=== PATIENT | female | born 1940 | race Caucasian/White ===

== ENCOUNTER 2017-12-09 11:19 | Inpatient (IN) | payer MEDICARE ==
[~2017-12-09] VITALS: Ht 162.6 cm; Wt 103.2 kg
[2017-12-09 11:45] LABS: BASOPHILS % (AUTO) 1.2 % (0.0-5.0); EOSINOPHILS % (AUTO) 2.4 % (0.0-8.0); HEMATOCRIT 38.9 % (36-48); LYMPHOCYTES % (AUTO) 23.7 % (21.0-51.0); MEAN CORPUSCULAR HEMOGLOBIN 30.8 pg (27.0-33.0); MEAN CORPUSCULAR HGB CONC 33.6 g/dL (32.0-36.0); MEAN CORPUSCULAR VOLUME 91.5 fL (79-99); MONOCYTES % (AUTO) 13.1 % (3.0-13.0); NEUTROPHILS % (AUTO) 59.6 % (40.0-77.0); PLATELET COUNT (AUTO) 201 K/uL (130-400); RED BLOOD CELL COUNT(AUTO) 4.25 MIL/uL (4.00-5.50); RED CELL DISTRIBUTION WIDTH 13.5 % (11.0-15.5); WHITE BLOOD COUNT (AUTO) 12.6 K/uL (4.8-10.8)
[2017-12-09 11:56] LABS: CARBON DIOXIDE 31 mmol/L (21-32); CHLORIDE 101 mmol/L (101-111); CREATININE 1.5 mg/dL (0.5-1.5); GLOMERULAR FILTR. RATE CALC 36 mL/min (>60); GLUCOSE,RANDOM 86 mg/dL (70-105); POTASSIUM 3.6 mmol/L (3.5-5.1); SODIUM SERUM 140 mmol/L (136-145); UREA NITROGEN, BLOOD 22 mg/dL (7-18)
[2017-12-09 12:12] LABS: ALANINE AMINOTRANSFERASE 13 U/L (12-78); ALBUMIN 3.3 g/dL (3.5-5.0); ASPARTATE AMINOTRANSFERASE 17 U/L (10-37); BILIRUBIN,TOTAL 1.2 mg/dL (0.2-1.0); CREATINE KINASE MB < 0.5 ng/mL (0.5-3.6); CREATINE KINASE, TOTAL 39 U/L (21-232)
[2017-12-09] MEDS ORDERED: ONDANSETRON HCL MDV 20ML 2 MG/ML VIAL ONE (12:30)
[2017-12-09] MEDS ORDERED: MORPHINE SULFATE 4 MG/1ML SYG ONE (12:30)
[2017-12-09 12:50] LABS: APPEARANCE,URINE SL CLOUDY (CLEAR); BILIRUBIN,URINE MODERATE (NEGATIVE); GLUCOSE, URINE (UA) NEGATIVE (NEGATIVE); KETONES,URINE 5 mg/dL (NEGATIVE); LEUKOCYTE ESTERASE ,URINE TRACE (NEGATIVE); NITRATE,URINE NEGATIVE (NEGATIVE); OCCULT BLOOD,URINE TRACE-INTACT (NEGATIVE); PROTEIN,URINE TRACE (NEGATIVE)
[2017-12-09 12:52] LABS: COLOR,URINE AMBER (YELLOW)
[2017-12-09 13:15] LABS: BACTERIA,URINE Rare /HPF (None Seen); RBC,URINE 0-1 /HPF (0-1); WBC,URINE 0-1 /HPF (0-1)
[2017-12-09] MEDS ORDERED: SODIUM CHLORIDE 0.9% 1000ML 1,000 ML IV ONE (13:23)
[2017-12-09] MEDS ORDERED: ASPIRIN 325 MG TABLET ONE (13:23)
[2017-12-09] MEDS ORDERED: SODIUM CHLORIDE 0.9% 1000ML 1,000 ML IV SCH (14:39)
[2017-12-09] MEDS ORDERED: MORPHINE SULFATE 2 MG/ML 1ML SYG IV PRN (14:45)
[2017-12-09] MEDS ORDERED: ACETAMINOPHEN-CODEINE 300/30MG TAB PO PRN ×3 (14:45→16:00)
[2017-12-09] MEDS ORDERED: ACETAMINOPHEN 325 MG TAB PO PRN ×2 (14:45)
[2017-12-09] MEDS ORDERED: MORPHINE SULFATE 4 MG/1ML SYG IV PRN (14:45)
[2017-12-09] MEDS ORDERED: MAG HYDROX/AL HYDROX/SIMETH ES 30 ML SUSP UDCUP PO PRN (14:45)
[2017-12-09] MEDS ORDERED: NITROGLYCERIN 0.4 MG SL TAB SL PRN (14:45)
[2017-12-09] MEDS ORDERED: GUAIFENESIN-DM 200/20 MG 10 ML PO PRN (14:45)
[2017-12-09] MEDS ORDERED: HYDRALAZINE HCL 20 MG/ML VIAL IV PRN (14:45)
[2017-12-09] MEDS ORDERED: LACTULOSE 20 GM/30 ML UDCUP PO PRN (14:45)
[2017-12-09] MEDS ORDERED: ONDANSETRON HCL MDV 20ML 2 MG/ML VIAL IV PRN (14:45)
[2017-12-09 16:00] VITALS: BP 114/70
[2017-12-09] MEDS ORDERED: OMEP20TA2 PO (18:36)
[2017-12-09] MEDS ORDERED: BRIN10DR OU (18:36)
[2017-12-09] MEDS ORDERED: FURO20TA4 PO (18:36)
[2017-12-09] MEDS ORDERED: MAGN250T10 PO (18:36)
[2017-12-09] MEDS ORDERED: PRAV20TA4 PO (18:36)
[2017-12-09] MEDS ORDERED: CHOL500045 PO (18:36)
[2017-12-09] MEDS ORDERED: LISI-613 PO (18:36)
[2017-12-09] MEDS ORDERED: VITA400T7 PO (18:36)
[2017-12-09] MEDS ORDERED: METH4TAB PO (18:36)
[2017-12-09] MEDS ORDERED: LATA2.5D2 OP (18:36)
[2017-12-09] MEDS ORDERED: CALC0.253 PO (18:36)
[2017-12-09] MEDS ORDERED: TIMO.5OS OU (18:36)
[2017-12-09 19:27] VITALS: BP 108/70
[2017-12-09] MEDS: FAMOTIDINE/PF 20 MG/2 ML VIAL IV SCH (21:00)
[2017-12-09 23:48] VITALS: BP 93/63
[2017-12-10 03:49] VITALS: BP 147/97
[2017-12-10 04:41] LABS: HEMATOCRIT 34.6 % (36-48); MEAN CORPUSCULAR HEMOGLOBIN 32.1 pg (27.0-33.0); MEAN CORPUSCULAR VOLUME 91.9 fL (79-99); PLATELET COUNT (AUTO) 180 K/uL (130-400); RED BLOOD CELL COUNT(AUTO) 3.77 MIL/uL (4.00-5.50); WHITE BLOOD COUNT (AUTO) 9.2 K/uL (4.8-10.8)
[2017-12-10 04:59] LABS: CREATININE 1.3 mg/dL (0.5-1.5); POTASSIUM 3.8 mmol/L (3.5-5.1)
[2017-12-10 08:00] VITALS: BP 106/71
[2017-12-10] MEDS: ENOXAPARIN SODIUM 40 MG/0.4 ML SYRINGE SQ SCH (08:36)
[2017-12-10] MEDS: FAMOTIDINE/PF 20 MG/2 ML VIAL IV SCH (08:36)
[2017-12-10 12:00] VITALS: BP 103/61
[2017-12-10 16:00] VITALS: BP 134/75
[2017-12-10 19:37] VITALS: BP 114/77
[2017-12-10] MEDS: BRINZOLAMIDE 1% 10ML DROPS.SUSP OU SCH (20:42)
[2017-12-10] MEDS ORDERED: ATORVASTATIN CALCIUM 10 MG TABLET PO SCH (21:00)
[2017-12-10 23:13] VITALS: BP 144/85
[2017-12-11 03:50] VITALS: BP 144/88
[2017-12-11 07:00] VITALS: BP 115/68
[2017-12-11] MEDS ORDERED: PHARMACY COMMUNICATION MISC SCH (07:15)
[2017-12-11] MEDS: FAMOTIDINE/PF 20 MG/2 ML VIAL IV SCH (08:53)
[2017-12-11] MEDS: ENOXAPARIN SODIUM 40 MG/0.4 ML SYRINGE SQ SCH (08:53)
[2017-12-11] MEDS: BRINZOLAMIDE 1% 10ML DROPS.SUSP OU SCH (08:58)
[2017-12-11] MEDS ORDERED: FUROSEMIDE 20 MG TABLET PO SCH (09:00)
[2017-12-11] MEDS ORDERED: CHOLECALCIFEROL 5000 UNIT PO SCH (09:00)
[2017-12-11] MEDS ORDERED: VITAMIN E 400 UNIT CAPSULE PO SCH (09:00)
[2017-12-11] MEDS ORDERED: METHYLPREDNISOLONE 4 MG TABLET PO SCH (09:00)
[2017-12-11] MEDS ORDERED: LISINOPRIL 20 MG TABLET PO SCH (09:00)
[2017-12-11] MEDS ORDERED: MAGNESIUM OXIDE 250 MG PO SCH (09:00)
== END 2017-12-11 12:15 | disposition home or self-care (01) | DRG 440 ==
LOC: EDH 11:19 → EDHIP 14:37 → 3CH 15:55
PROVIDERS: ADMIT Internal Medicine; ATTEND Internal Medicine
DX: K85.90 Acute pancreatitis without necrosis or infection, unspecified (principal); M06.9 Rheumatoid arthritis, unspecified; E66.9 Obesity, unspecified; I10 Essential (primary) hypertension; E78.5 Hyperlipidemia, unspecified; Z90.710 Acquired absence of both cervix and uterus; Z88.5 Allergy status to narcotic agent; Z91.012 Allergy to eggs
CPT/HCPCS: 36415; 71045; 74176; 76705; 80048; 80053; 81001; 82550; 82553; 83690; 84478; 84484; 85025; 85027; 93005; J1650; J2270; J3490; J7030; J7509

== ENCOUNTER 2018-11-28 12:53 | Emergency (ER) | payer MEDICARE ==
[~2018-11-28 12:53] MED LIST: BRIN10DR OU; CALC0.253 PO; CHOL500045 PO; FURO20TA4 PO; LATA2.5D2 OP; LISI-613 PO; MAGN250T10 PO; METH4TAB PO; OMEP20TA2 PO; PRAV20TA4 PO; TIMO.5OS OU; VITA400T7 PO
[2018-11-28] MEDS ORDERED: LIDOCAINE HCL 1% 20 ML VIAL ONE (13:20)
[2018-11-28] MEDS ORDERED: TETANUS/DIPHTHERIA TOXOID [ADULT] 0.5 ML VIAL IM ONE (13:20)
[2018-11-28] MEDS ORDERED: LIDOCAINE 2%-EPI 1:200,000 20 ML VIAL IJ ONE (13:27)
[2018-11-28 14:23] LABS: BASOPHILS % (AUTO) 0.6 % (0.0-5.0); EOSINOPHILS % (AUTO) 0.5 % (0.0-8.0); HEMATOCRIT 41.6 % (36-48); LYMPHOCYTES % (AUTO) 16.4 % (21.0-51.0); MEAN CORPUSCULAR HEMOGLOBIN 30.1 pg (27.0-33.0); MEAN CORPUSCULAR HGB CONC 32.7 g/dL (32.0-36.0); MEAN CORPUSCULAR VOLUME 92.2 fL (79-99); MONOCYTES % (AUTO) 7.4 % (3.0-13.0); NEUTROPHILS % (AUTO) 75.1 % (40.0-77.0); PLATELET COUNT (AUTO) 238 K/uL (130-400); RED BLOOD CELL COUNT(AUTO) 4.51 MIL/uL (4.00-5.50); RED CELL DISTRIBUTION WIDTH 14.8 % (11.0-15.5); WHITE BLOOD COUNT (AUTO) 10.5 K/uL (4.8-10.8)
[2018-11-28 14:31] LABS: CREATININE 1.5 mg/dL (0.5-1.5)
[2018-11-28 14:32] LABS: INR 0.96 (0.85-1.15); PARTIAL THROMBOPLASTIN TIME 19.8 SEC (26.3-35.5); PROTHROMBIN TIME 10.1 SEC (9.6-11.6)
[2018-11-28 14:35] LABS: ALBUMIN 3.6 g/dL (3.5-5.0); BILIRUBIN,TOTAL 0.6 mg/dL (0.2-1.0); TOTAL PROTEIN, SERUM 6.8 g/dL (6.0-8.3)
== END 2018-11-28 16:16 | disposition home or self-care (01) ==
LOC: EDH 12:53
DX: S81.012A Laceration without foreign body, left knee, initial encounter (principal); S51.811A Laceration without foreign body of right forearm, initial encounter; S60.512A Abrasion of left hand, initial encounter; I10 Essential (primary) hypertension; M06.9 Rheumatoid arthritis, unspecified; R79.1 Abnormal coagulation profile; Z88.6 Allergy status to analgesic agent; Z90.710 Acquired absence of both cervix and uterus; Z91.012 Allergy to eggs; W01.0XXA Fall on same level from slipping, tripping and stumbling without subsequent striking against object, initial encounter; Y93.89 Activity, other specified; Y92.89 Other specified places as the place of occurrence of the external cause; Y99.8 Other external cause status
CPT/HCPCS: 12005; 36415; 71045; 73562; 80053; 82550; 85025; 85610; 85730; 90471; 90714; 93005; 99284; J3490

== ENCOUNTER → 2019-01-21 | Outpatient (CLI) | payer MEDICARE | END | disposition home or self-care (01) | LOC: RAH 07:58 | PROVIDERS: ATTEND Family Medicine | DX: S83.207A Unspecified tear of unspecified meniscus, current injury, left knee, initial encounter (principal); S83.206A Unspecified tear of unspecified meniscus, current injury, right knee, initial encounter; M17.12 Unilateral primary osteoarthritis, left knee; M25.462 Effusion, left knee; X58.XXXA Exposure to other specified factors, initial encounter; Y93.89 Activity, other specified; Y92.89 Other specified places as the place of occurrence of the external cause; Y99.8 Other external cause status | CPT/HCPCS: 73721 ==

== ENCOUNTER → 2019-02-10 | Outpatient (CLI) | payer MEDICARE ==
[~2019-02-10] VITALS: Ht 157.5 cm; Wt 105.2 kg
[~2019-02-10] MED LIST changes: +REGADENOSON 0.4 MG/5 ML PF SYG IVP SCH
== END | disposition home or self-care (01) ==
LOC: SHCH 08:41
PROVIDERS: ATTEND Internal Medicine Cardiovascular Disease
DX: I25.89 Other forms of chronic ischemic heart disease (principal); I25.10 Atherosclerotic heart disease of native coronary artery without angina pectoris
CPT/HCPCS: 78452; 93017; 96374; A9500 ×2; J2785

== ENCOUNTER 2022-03-14 13:59 | Inpatient (IN) | payer MEDICARE ==
[~2022-03-14] VITALS: Ht 157.5 cm; Wt 82.9 kg
[~2022-03-14 13:59] MED LIST changes: +LATA2.5D14 OP; -LATA2.5D2 OP; -LISI-613 PO; +LISI20TA24 PO; -REGADENOSON 0.4 MG/5 ML PF SYG IVP SCH
[2022-03-14] MEDS ORDERED: IPRATROPIUM/ALBUTEROL SULFATE 3 ML SOLUTION IH ONE ×2 (14:30→14:33)
[2022-03-14 14:50] LABS: BASOPHILS % (AUTO) 0.5 % (0.0-5.0); EOSINOPHILS % (AUTO) 4.3 % (0.0-8.0); HEMATOCRIT 38.1 % (36-48); LYMPHOCYTES % (AUTO) 9.1 % (21.0-51.0); MEAN CORPUSCULAR HGB CONC 32.8 g/dL (32.0-36.0); MEAN CORPUSCULAR VOLUME 91.6 fL (79-99); MONOCYTES % (AUTO) 7.3 % (3.0-13.0); NEUTROPHILS % (AUTO) 78.2 % (40.0-77.0); PLATELET COUNT (AUTO) 267 K/uL (130-400); RED BLOOD CELL COUNT(AUTO) 4.16 MIL/uL (4.00-5.50); RED CELL DISTRIBUTION WIDTH 14.5 % (11.0-15.5); WHITE BLOOD COUNT (AUTO) 15.7 K/uL (4.8-10.8)
[2022-03-14 15:03] LABS: CREATININE 1.5 mg/dL (0.5-1.5); POTASSIUM 3.6 mmol/L (3.5-5.1)
[2022-03-14 15:11] LABS: ALBUMIN 2.6 g/dL (3.5-5.0)
[2022-03-14] MEDS ORDERED: AZITHROMYCIN 250 MG TABLET PO ONE ×2 (15:30→19:52)
[2022-03-14] MEDS ORDERED: CEFTRIAXONE 1G VIAL IVP ONE (15:30)
[2022-03-14 15:35] LABS: B-TYPE NATRIURETIC PEPTIDE 40 pg/mL (0-100)
[2022-03-14] MEDS ORDERED: IPRATROPIUM/ALBUTEROL SULFATE 3 ML SOLUTION IH PRN (16:30)
[2022-03-14] MEDS: ZOSYN 3.375GM +NS 50ML IV SCH (17:00)
[2022-03-14] MEDS ORDERED: THIAMINE HCL 100 MG/ML 2ML VIAL IVP ONE (17:00)
[2022-03-14] MEDS ORDERED: FOLIC ACID 5 MG/ML VIAL IV ONE (17:00)
[2022-03-14] MEDS: 0.9%NACL 1000ML 1,000 ML IV SCH (17:29)
[2022-03-14 17:39] LABS: CRP QUANTITATIVE 50.9 mg/L (0.00-9.0)
[2022-03-14] MEDS ORDERED: IOHEXOL 350 MG/ML 100ML INFUS..BTL IV ONE (18:06)
[2022-03-14] MEDS: BUDESONIDE 0.5 MG/2 ML INH IH SCH (18:23)
[2022-03-14] MEDS ORDERED: BENZONATATE 100 MG CAPSULE PO PRN (18:30)
[2022-03-14] MEDS ORDERED: CEFTRIAXONE 1G VIAL ONE (19:52)
[2022-03-14 21:35] LABS: APPEARANCE,URINE CLEAR (CLEAR); BILIRUBIN,URINE NEGATIVE (NEGATIVE); COLOR,URINE YELLOW (YELLOW); GLUCOSE, URINE (UA) NEGATIVE (NEGATIVE); KETONES,URINE NEGATIVE (NEGATIVE); LEUKOCYTE ESTERASE ,URINE NEGATIVE (NEGATIVE); NITRATE,URINE NEGATIVE (NEGATIVE); OCCULT BLOOD,URINE TRACE-INTACT (NEGATIVE); PH,URINE 5.5 (5.0-8.0); PROTEIN,URINE NEGATIVE (NEGATIVE); UROBILINOGEN,URINE 0.2 mg/dL (0.2-1.0)
[2022-03-14 21:52] LABS: BACTERIA,URINE Rare /HPF (None Seen); MUCUS,URINE Few LPF (None Seen); SQUAMOUS EPITHELIAL CELL,UR Few /HPF (0-2); URIC ACID CRYSTALS,URINE Few /LPF (None Seen); WBC,URINE 0-1 /HPF (0-1)
[2022-03-14 23:45] VITALS: BP 120/62
[2022-03-15 04:55] VITALS: BP 138/68
[2022-03-15] MEDS: GUAIFENESIN-DM 200/20 MG 10 ML PO PRN (05:01)
[2022-03-15] MEDS: ZOSYN 3.375GM +NS 50ML IV SCH ×2 (05:05→16:55)
[2022-03-15] MEDS: BUDESONIDE 0.5 MG/2 ML INH IH SCH ×2 (06:19→18:52)
[2022-03-15 06:54] LABS: BASOPHILS % (AUTO) 0.4 % (0.0-5.0); EOSINOPHILS % (AUTO) 4.6 % (0.0-8.0); HEMATOCRIT 39.1 % (36-48); LYMPHOCYTES % (AUTO) 14.4 % (21.0-51.0); MEAN CORPUSCULAR HEMOGLOBIN 29.7 pg (27.0-33.0); MEAN CORPUSCULAR HGB CONC 31.7 g/dL (32.0-36.0); MEAN CORPUSCULAR VOLUME 93.8 fL (79-99); MONOCYTES % (AUTO) 13.7 % (3.0-13.0); NEUTROPHILS % (AUTO) 66.3 % (40.0-77.0); PLATELET COUNT (AUTO) 281 K/uL (130-400); RED BLOOD CELL COUNT(AUTO) 4.17 MIL/uL (4.00-5.50); RED CELL DISTRIBUTION WIDTH 14.4 % (11.0-15.5)
[2022-03-15 07:25] LABS: ALBUMIN 2.5 g/dL (3.5-5.0); CREATININE 1.4 mg/dL (0.5-1.5); CRP QUANTITATIVE 47.8 mg/L (0.00-9.0); MAGNESIUM 1.2 mg/dL (1.80-2.40); POTASSIUM 3.8 mmol/L (3.5-5.1); TOTAL PROTEIN, SERUM 5.9 g/dL (6.0-8.3)
[2022-03-15] MEDS: AZITHROMYCIN 250 MG TABLET PO SCH (09:01)
[2022-03-15] MEDS: METHYLPREDNISOLONE 4 MG TABLET PO SCH (09:01)
[2022-03-15] MEDS: Vitamin B Complex/Vit C/Folic Acid PO SCH (09:01)
[2022-03-15] MEDS: FAMOTIDINE 20MG TAB PO SCH (09:02)
[2022-03-15] MEDS: MAGNESIUM 2GM PREMIX 50ML 50 ML IV SCH (09:40)
[2022-03-15] MEDS: 0.9%NACL 1000ML 1,000 ML IV SCH (10:46)
[2022-03-15 16:00] VITALS: BP 120/68
[2022-03-15] MEDS ORDERED: CALC-1038 PO (18:58)
[2022-03-15] MEDS ORDERED: AEC81 PO (18:58)
[2022-03-15] MEDS ORDERED: EZET10TA48 PO (18:58)
[2022-03-15 20:00] VITALS: BP 140/73
[2022-03-15] MEDS: ENOXAPARIN SODIUM 40 MG/0.4 ML SYRINGE SQ SCH (21:34)
[2022-03-16] VITALS (7 sets, daily range): BP systolic 118–144; BP diastolic 32–89
[2022-03-16] MEDS: ZOSYN 3.375GM +NS 50ML IV SCH ×2 (05:11→16:09)
[2022-03-16 05:15] LABS: ALANINE AMINOTRANSFERASE 10 U/L (12-78); ALBUMIN 2.5 g/dL (3.5-5.0); ASPARTATE AMINOTRANSFERASE 15 U/L (10-37); CARBON DIOXIDE 23 mmol/L (21-32); CHLORIDE 105 mmol/L (101-111); CREATININE 1.6 mg/dL (0.5-1.5); GLOMERULAR FILTR. RATE CALC 33 mL/min (>60); GLUCOSE,RANDOM 87 mg/dL (70-105); POTASSIUM 3.6 mmol/L (3.5-5.1); SODIUM SERUM 140 mmol/L (136-145); TOTAL PROTEIN, SERUM 5.7 g/dL (6.0-8.3); UREA NITROGEN, BLOOD 21 mg/dL (7-18)
[2022-03-16] MEDS: BUDESONIDE 0.5 MG/2 ML INH IH SCH ×2 (06:00→19:14)
[2022-03-16] MEDS ORDERED: ASPIRIN 81 MG EC TAB PO SCH (09:00)
[2022-03-16] MEDS: ENOXAPARIN SODIUM 40 MG/0.4 ML SYRINGE SQ SCH (09:04)
[2022-03-16] MEDS: AZITHROMYCIN 250 MG TABLET PO SCH (09:05)
[2022-03-16] MEDS: CALCIUM CARB 500MG PO SCH (09:07)
[2022-03-16] MEDS: FAMOTIDINE 20MG TAB PO SCH (09:07)
[2022-03-16] MEDS: METHYLPREDNISOLONE 4 MG TABLET PO SCH (09:07)
[2022-03-16] MEDS: EZETIMIBE 10 MG TAB PO SCH (09:08)
[2022-03-16] MEDS: Vitamin B Complex/Vit C/Folic Acid PO SCH (09:09)
[2022-03-16 10:14] LABS: INR 1.02 (0.85-1.15); PROTHROMBIN TIME 11.1 SEC (9.6-11.6)
[2022-03-16 10:16] LABS: PARTIAL THROMBOPLASTIN TIME 28.5 SEC (26.3-35.5)
[2022-03-17] VITALS (7 sets, daily range): BP systolic 106–136; BP diastolic 54–78
[2022-03-17 03:40] LABS: HEMATOCRIT 37.6 % (36-48); MEAN CORPUSCULAR HGB CONC 32.2 g/dL (32.0-36.0); MEAN CORPUSCULAR VOLUME 93.1 fL (79-99); RED BLOOD CELL COUNT(AUTO) 4.04 MIL/uL (4.00-5.50); RED CELL DISTRIBUTION WIDTH 14.5 % (11.0-15.5); WHITE BLOOD COUNT (AUTO) 17.5 K/uL (4.8-10.8)
[2022-03-17 03:52] LABS: CREATININE 1.4 mg/dL (0.5-1.5); MAGNESIUM 1.6 mg/dL (1.80-2.40)
[2022-03-17 04:03] LABS: INR 1.01 (0.85-1.15)
[2022-03-17 04:04] LABS: PARTIAL THROMBOPLASTIN TIME 25.1 SEC (26.3-35.5)
[2022-03-17] MEDS: ZOSYN 3.375GM +NS 50ML IV SCH ×2 (04:39→17:53)
[2022-03-17 05:06] LABS: POTASSIUM 2.9 mmol/L (3.5-5.1)
[2022-03-17] MEDS ORDERED: KCL 20 MEQ ERTAB PO ONE (05:30)
[2022-03-17] MEDS: BUDESONIDE 0.5 MG/2 ML INH IH SCH ×2 (06:41→20:12)
[2022-03-17] MEDS: Vitamin B Complex/Vit C/Folic Acid PO SCH (09:02)
[2022-03-17] MEDS: METHYLPREDNISOLONE 4 MG TABLET PO SCH (09:02)
[2022-03-17] MEDS: AZITHROMYCIN 250 MG TABLET PO SCH (09:02)
[2022-03-17] MEDS: EZETIMIBE 10 MG TAB PO SCH (09:02)
[2022-03-17] MEDS: CALCIUM CARB 500MG PO SCH (09:02)
[2022-03-17] MEDS: FAMOTIDINE 20MG TAB PO SCH (09:02)
[2022-03-17] MEDS ORDERED: POTASSIUM CHLORIDE 20MEQ/100ML 100 ML IV PRN (11:30)
[2022-03-17] MEDS ORDERED: POTASSIUM CHLORIDE 10% ELIXIR 20 MEQ/15 ML UDCUP PO PRN (11:30)
[2022-03-17] MEDS ORDERED: 0.9%NACL 1000ML 1,000 ML IV ONE (11:30)
[2022-03-17] MEDS: KCL 20 MEQ ERTAB PO PRN ×2 (14:32→14:33)
[2022-03-18 00:08] VITALS: BP 120/89
[2022-03-18 04:19] LABS: BASOPHILS % (AUTO) 0.6 % (0.0-5.0); EOSINOPHILS % (AUTO) 3.5 % (0.0-8.0); HEMATOCRIT 37.3 % (36-48); MEAN CORPUSCULAR HEMOGLOBIN 29.9 pg (27.0-33.0); MEAN CORPUSCULAR HGB CONC 32.2 g/dL (32.0-36.0); MONOCYTES % (AUTO) 12.1 % (3.0-13.0); NEUTROPHILS % (AUTO) 67.1 % (40.0-77.0); PLATELET COUNT (AUTO) 287 K/uL (130-400); RED BLOOD CELL COUNT(AUTO) 4.01 MIL/uL (4.00-5.50); RED CELL DISTRIBUTION WIDTH 14.7 % (11.0-15.5); WHITE BLOOD COUNT (AUTO) 17.7 K/uL (4.8-10.8)
[2022-03-18 04:29] VITALS: BP 122/65
[2022-03-18 04:49] LABS: ALBUMIN 2.4 g/dL (3.5-5.0); CREATININE 1.5 mg/dL (0.5-1.5); MAGNESIUM 1.7 mg/dL (1.80-2.40); PHOSPHORUS 2.5 mg/dL (2.5-4.9); POTASSIUM 4.3 mmol/L (3.5-5.1); TOTAL PROTEIN, SERUM 5.8 g/dL (6.0-8.3)
[2022-03-18] MEDS: ZOSYN 3.375GM +NS 50ML IV SCH ×2 (06:00→18:00)
[2022-03-18] MEDS: BUDESONIDE 0.5 MG/2 ML INH IH SCH ×2 (06:34→17:22)
[2022-03-18 07:37] VITALS: BP 156/84
[2022-03-18] MEDS: EZETIMIBE 10 MG TAB PO SCH (09:41)
[2022-03-18] MEDS: Vitamin B Complex/Vit C/Folic Acid PO SCH (09:41)
[2022-03-18] MEDS: AZITHROMYCIN 250 MG TABLET PO SCH (09:41)
[2022-03-18] MEDS: MAGNESIUM 2GM PREMIX 50ML 50 ML IV SCH (09:41)
[2022-03-18] MEDS: FAMOTIDINE 20MG TAB PO SCH (09:41)
[2022-03-18] MEDS: CALCIUM CARB 500MG PO SCH (09:41)
[2022-03-18] MEDS: METHYLPREDNISOLONE 4 MG TABLET PO SCH (09:41)
[2022-03-18 11:48] VITALS: BP 110/54
[2022-03-18] MEDS ORDERED: LOPERAMIDE HCL 2 MG CAP PO ONE (15:00)
[2022-03-18 16:09] VITALS: BP 131/79
[2022-03-18 20:37] VITALS: BP 113/78
[2022-03-19 00:33] VITALS: BP 104/67
[2022-03-19 04:23] VITALS: BP 132/65
[2022-03-19] MEDS: ZOSYN 3.375GM +NS 50ML IV SCH ×2 (05:20→16:52)
[2022-03-19] MEDS: BUDESONIDE 0.5 MG/2 ML INH IH SCH ×2 (06:21→16:52)
[2022-03-19 06:54] LABS: BASOPHILS % (AUTO) 0.6 % (0.0-5.0); EOSINOPHILS % (AUTO) 7.7 % (0.0-8.0); HEMATOCRIT 37.1 % (36-48); LYMPHOCYTES % (AUTO) 18.2 % (21.0-51.0); MEAN CORPUSCULAR HEMOGLOBIN 30.1 pg (27.0-33.0); MEAN CORPUSCULAR HGB CONC 31.8 g/dL (32.0-36.0); MEAN CORPUSCULAR VOLUME 94.6 fL (79-99); MONOCYTES % (AUTO) 11.8 % (3.0-13.0); PLATELET COUNT (AUTO) 297 K/uL (130-400); RED BLOOD CELL COUNT(AUTO) 3.92 MIL/uL (4.00-5.50); RED CELL DISTRIBUTION WIDTH 15.1 % (11.0-15.5); WHITE BLOOD COUNT (AUTO) 19.2 K/uL (4.8-10.8)
[2022-03-19 07:05] LABS: CREATININE 1.4 mg/dL (0.5-1.5); POTASSIUM 3.9 mmol/L (3.5-5.1)
[2022-03-19 07:51] VITALS: BP 123/60
[2022-03-19] MEDS: EZETIMIBE 10 MG TAB PO SCH (08:33)
[2022-03-19] MEDS: AZITHROMYCIN 250 MG TABLET PO SCH (08:33)
[2022-03-19] MEDS: Vitamin B Complex/Vit C/Folic Acid PO SCH (08:33)
[2022-03-19] MEDS: FAMOTIDINE 20MG TAB PO SCH (08:33)
[2022-03-19] MEDS: METHYLPREDNISOLONE 4 MG TABLET PO SCH (08:33)
[2022-03-19] MEDS: CALCIUM CARB 500MG PO SCH (08:33)
[2022-03-19 11:27] VITALS: BP 107/59
[2022-03-19 16:03] VITALS: BP 106/61
[2022-03-19] MEDS: GUAIFENESIN-DM 200/20 MG 10 ML PO PRN (16:52)
[2022-03-19 20:42] VITALS: BP 129/68
[2022-03-20 01:03] VITALS: BP 132/61
[2022-03-20 04:05] VITALS: BP 120/63
[2022-03-20] MEDS: ZOSYN 3.375GM +NS 50ML IV SCH ×2 (04:15→17:17)
[2022-03-20] MEDS: BUDESONIDE 0.5 MG/2 ML INH IH SCH ×2 (06:20→18:29)
[2022-03-20 06:36] LABS: BASOPHILS % (AUTO) 0.7 % (0.0-5.0); CREATININE 1.2 mg/dL (0.5-1.5); EOSINOPHILS % (AUTO) 8.2 % (0.0-8.0); HEMATOCRIT 37.5 % (36-48); MEAN CORPUSCULAR HEMOGLOBIN 30.4 pg (27.0-33.0); MEAN CORPUSCULAR HGB CONC 31.7 g/dL (32.0-36.0); MEAN CORPUSCULAR VOLUME 95.9 fL (79-99); MONOCYTES % (AUTO) 11.3 % (3.0-13.0); NEUTROPHILS % (AUTO) 59.1 % (40.0-77.0); PLATELET COUNT (AUTO) 294 K/uL (130-400); POTASSIUM 3.8 mmol/L (3.5-5.1); RED BLOOD CELL COUNT(AUTO) 3.91 MIL/uL (4.00-5.50); RED CELL DISTRIBUTION WIDTH 15.1 % (11.0-15.5); WHITE BLOOD COUNT (AUTO) 15.4 K/uL (4.8-10.8)
[2022-03-20 08:14] VITALS: BP 142/63
[2022-03-20] MEDS: METHYLPREDNISOLONE 4 MG TABLET PO SCH (09:38)
[2022-03-20] MEDS: Vitamin B Complex/Vit C/Folic Acid PO SCH (09:38)
[2022-03-20] MEDS: AZITHROMYCIN 250 MG TABLET PO SCH (09:38)
[2022-03-20] MEDS: EZETIMIBE 10 MG TAB PO SCH (09:38)
[2022-03-20] MEDS: CALCIUM CARB 500MG PO SCH (09:38)
[2022-03-20] MEDS: FAMOTIDINE 20MG TAB PO SCH (09:39)
[2022-03-20 11:39] VITALS: BP 131/61
[2022-03-20 16:45] VITALS: BP 95/63
[2022-03-20] MEDS: KCL 20 MEQ ERTAB PO PRN (17:38)
[2022-03-20 20:14] VITALS: BP 135/62
[2022-03-21] VITALS (7 sets, daily range): BP systolic 104–144; BP diastolic 52–69
[2022-03-21] MEDS: ZOSYN 3.375GM +NS 50ML IV SCH (04:33)
[2022-03-21 04:39] LABS: BASOPHILS % (AUTO) 0.8 % (0.0-5.0); EOSINOPHILS % (AUTO) 7.7 % (0.0-8.0); HEMATOCRIT 38.5 % (36-48); LYMPHOCYTES % (AUTO) 18.1 % (21.0-51.0); MEAN CORPUSCULAR HEMOGLOBIN 29.6 pg (27.0-33.0); MEAN CORPUSCULAR HGB CONC 31.2 g/dL (32.0-36.0); MEAN CORPUSCULAR VOLUME 95.1 fL (79-99); NEUTROPHILS % (AUTO) 59.7 % (40.0-77.0); PLATELET COUNT (AUTO) 291 K/uL (130-400); RED BLOOD CELL COUNT(AUTO) 4.05 MIL/uL (4.00-5.50); RED CELL DISTRIBUTION WIDTH 15.1 % (11.0-15.5)
[2022-03-21 04:48] LABS: INR 0.99 (0.85-1.15); PROTHROMBIN TIME 10.8 SEC (9.6-11.6)
[2022-03-21 04:50] LABS: CREATININE 1.2 mg/dL (0.5-1.5); PARTIAL THROMBOPLASTIN TIME 24.2 SEC (26.3-35.5); POTASSIUM 5.5 mmol/L (3.5-5.1)
[2022-03-21] MEDS: BUDESONIDE 0.5 MG/2 ML INH IH SCH ×2 (06:29→18:26)
[2022-03-21] MEDS ORDERED: 0.9%NACL 1000ML 500 ML IV ONE (06:30)
[2022-03-21 07:13] LABS: CREATININE 1.1 mg/dL (0.5-1.5); POTASSIUM 5.4 mmol/L (3.5-5.1)
[2022-03-21] MEDS ORDERED: FENTANYL CITRATE PF 50 MCG/1 ML 2ML VIAL ONE (09:17)
[2022-03-21] MEDS ORDERED: MIDAZOLAM HCL 1 MG/ML 2ML VIAL ONE (09:17)
[2022-03-21] MEDS: METHYLPREDNISOLONE 4 MG TABLET PO SCH (09:20)
[2022-03-21] MEDS: EZETIMIBE 10 MG TAB PO SCH (09:20)
[2022-03-21] MEDS: CALCIUM CARB 500MG PO SCH (09:20)
[2022-03-21] MEDS: FAMOTIDINE 20MG TAB PO SCH (09:20)
[2022-03-21] MEDS: Vitamin B Complex/Vit C/Folic Acid PO SCH (09:20)
[2022-03-21 12:24] LABS: CREATININE 1.2 mg/dL (0.5-1.5); POTASSIUM 3.8 mmol/L (3.5-5.1)
[2022-03-21] MEDS ORDERED: ACETAMINOPHEN 325 MG TAB PO PRN (14:30)
[2022-03-22 04:00] VITALS: BP 118/57
[2022-03-22] MEDS: BUDESONIDE 0.5 MG/2 ML INH IH SCH (06:22)
[2022-03-22 07:35] LABS: EOSINOPHILS % (AUTO) 7.7 % (0.0-8.0); HEMATOCRIT 36.7 % (36-48); MEAN CORPUSCULAR HEMOGLOBIN 30.1 pg (27.0-33.0); MEAN CORPUSCULAR HGB CONC 31.9 g/dL (32.0-36.0); MEAN CORPUSCULAR VOLUME 94.3 fL (79-99); NEUTROPHILS % (AUTO) 59.7 % (40.0-77.0); PLATELET COUNT (AUTO) 267 K/uL (130-400); RED BLOOD CELL COUNT(AUTO) 3.89 MIL/uL (4.00-5.50); WHITE BLOOD COUNT (AUTO) 15.4 K/uL (4.8-10.8)
[2022-03-22 07:36] VITALS: BP 117/58
[2022-03-22 07:51] LABS: CREATININE 1.1 mg/dL (0.5-1.5); POTASSIUM 3.9 mmol/L (3.5-5.1)
[2022-03-22] MEDS ORDERED: IPRA3AMP24 IH (08:37)
[2022-03-22] MEDS ORDERED: AZIT250T PO (08:37)
[2022-03-22] MEDS ORDERED: BENZ-70 PO (08:37)
[2022-03-22] MEDS ORDERED: LOSA25TA41 PO (08:37)
[2022-03-22] MEDS ORDERED: NEBU1KIT3 MC (08:39)
[2022-03-22] MEDS ORDERED: MAGNESIUM OXIDE 400 MG TABLET PO SCH (09:00)
[2022-03-22] MEDS ORDERED: FUROSEMIDE 20 MG TABLET PO SCH (09:00)
[2022-03-22] MEDS ORDERED: TIMOLOL MALEATE 0.5% 5 ML BOTTLE OU SCH (09:00)
[2022-03-22] MEDS ORDERED: LISINOPRIL 20 MG TABLET PO SCH (09:00)
[2022-03-22] MEDS ORDERED: BRINZOLAMIDE 1% 10ML DROPS.SUSP OU SCH (09:00)
[2022-03-22] MEDS ORDERED: **HM** VIT D3 5000 UNITS PO SCH (09:00)
[2022-03-22] MEDS ORDERED: PANTOPRAZOLE 40 MG TAB DR PO SCH (09:00)
[2022-03-22] MEDS ORDERED: VITAMIN E 400 UNIT CAPSULE PO SCH (09:00)
[2022-03-22] MEDS: CALCIUM CARB 500MG PO SCH (09:44)
[2022-03-22] MEDS: EZETIMIBE 10 MG TAB PO SCH (09:45)
[2022-03-22] MEDS: METHYLPREDNISOLONE 4 MG TABLET PO SCH (09:45)
[2022-03-22] MEDS: Vitamin B Complex/Vit C/Folic Acid PO SCH (09:45)
[2022-03-22] MEDS: FAMOTIDINE 20MG TAB PO SCH (09:45)
[2022-03-22 10:56] VITALS: BP 114/68
== END 2022-03-22 16:21 | disposition home or self-care (01) | DRG 193 ==
LOC: EDH 13:59 → EDHIP 16:58 → 4BH 16:58 → UNDOADMIN 16:58
PROVIDERS: ADMIT Internal Medicine; ATTEND Internal Medicine
PROC: 0BBJ3ZX Excision of Left Lower Lung Lobe, Percutaneous Approach, Diagnostic (ICD-10-PCS; principal; 2022-03-21)
DX: J18.9 Pneumonia, unspecified organism (principal); E43 Unspecified severe protein-calorie malnutrition; J96.01 Acute respiratory failure with hypoxia; E86.0 Dehydration; E86.1 Hypovolemia; E66.01 Morbid (severe) obesity due to excess calories; Z68.33 Body mass index [BMI] 33.0-33.9, adult; Z20.822 Contact with and (suspected) exposure to COVID-19; E78.00 Pure hypercholesterolemia, unspecified; Z90.710 Acquired absence of both cervix and uterus; M10.9 Gout, unspecified; K21.9 Gastro-esophageal reflux disease without esophagitis; I12.9 Hypertensive chronic kidney disease with stage 1 through stage 4 chronic kidney disease, or unspecified chronic kidney disease; M06.9 Rheumatoid arthritis, unspecified; N18.30 Chronic kidney disease, stage 3 unspecified; Z87.891 Personal history of nicotine dependence; G47.33 Obstructive sleep apnea (adult) (pediatric); Z87.01 Personal history of pneumonia (recurrent); E11.22 Type 2 diabetes mellitus with diabetic chronic kidney disease; E87.5 Hyperkalemia
CPT/HCPCS: 32405; 36415; 70450; 71045; 71270; 74176; 77012; 80048; 80053; 81001; 83615; 83735; 83880; 84100; 84145; 84484; 85025; 85027; 85378; 85610; 85651; 85730; 86140; 86606; 86612; 86738; 87040; 87071; 87205; 87324; 87385; 87449; 87635; 87804; 93005; 93306; 93970; 94640; 94664; 94760; 99152; 99153; C9803; G0378; J0696; J1650; J2250; J2543; J3010; J3411; J3475; J3490; J7030; J7509; Q9967